=== PATIENT | female | born 1985 | race Caucasian/White ===

== ENCOUNTER 2020-08-09 01:58 | Emergency (ER) | payer MEDICARE, OTHER ==
[~2020-08-09 01:58] MED LIST: ZOFRAN ODT 4 MG4 MG PO
== END 2020-08-09 03:07 | disposition home or self-care (01) ==
LOC: ER1 01:58
DX: R06.00 Dyspnea, unspecified (principal); M79.605 Pain in left leg; M79.604 Pain in right leg; M54.9 Dorsalgia, unspecified; F17.210 Nicotine dependence, cigarettes, uncomplicated
CPT/HCPCS: 96372; 99284; J1885

== ENCOUNTER 2020-08-09 05:07 | Emergency (ER) | payer MEDICARE, OTHER | END 2020-08-09 05:55 | disposition home or self-care (01) | LOC: ER1 05:07 | DX: R53.1 Weakness (principal); F17.210 Nicotine dependence, cigarettes, uncomplicated | CPT/HCPCS: 99284 ==